=== PATIENT | male | born 1990 | race Hispanic/Latino ===

== ENCOUNTER 2017-05-22 20:08 | Emergency (ER) | payer SELFPAY ==
--- NOTE | 2017-05-22 22:17 | RAD ---
CERVICAL SPINE THREE VIEWS: 05/22/17 HISTORY: 27-year-old male with occipital headache and bilateral arm pain for two days. C7-T1 is partially obscured on the lateral view. There is no prevertebral soft tissue swelling. The t ip of the odontoid and portions of C1 are obscured on the AP open mouth view. No evidence for acute f racture or dislocation involving the visualized C-spine. No significant malalignment. Very mild degen erative changes. IMPRESSION: Very mild degenerative changes. No evidence of acute fracture or dislocation involving the visualized C-spine. POS: [facility]
== END 2017-05-22 22:44 | disposition home or self-care (01) ==
LOC: ERS 20:08
DX: M54.12 Radiculopathy, cervical region (principal); E78.5 Hyperlipidemia, unspecified; Z87.891 Personal history of nicotine dependence
CPT/HCPCS: 72040

== ENCOUNTER 2017-06-14 13:23 | Emergency (ER) | payer SELFPAY | END 2017-06-14 14:30 | disposition home or self-care (01) | LOC: ERS 13:23 | DX: R09.1 Pleurisy (principal); E78.5 Hyperlipidemia, unspecified; F41.9 Anxiety disorder, unspecified; Z87.891 Personal history of nicotine dependence | CPT/HCPCS: 99283 ==

== ENCOUNTER 2017-07-05 21:58 | Emergency (ER) | payer SELFPAY ==
[2017-07-05] MEDS ORDERED: Ketorolac Tromethamine 30 MG/ML VIAL ONE (22:31)
--- NOTE | 2017-07-05 22:33 | RAD ---
SINGLE VIEW OF THE CHEST: Comparison: None. History: Chest pain. FINDINGS: Single view of the chest shows a normal sized cardiomediastinal silhouette. There is no evidence of c onsolidation, mass, or pleural effusion. The bones are unremarkable. IMPRESSION: No evidence of acute cardiopulmonary disease. POS: [facility]
--- NOTE | 2017-08-08 15:03 | EKG ---
Test Reason : Blood Pressure : / mmHG Vent. Rate : 070 BPM Atrial Rate : 070 BPM P-R Int : 154 ms QRS Dur : 092 ms QT Int : 388 ms P-R-T Axes : 034 068 031 degrees QTc Int : 419 ms Normal sinus rhythm Normal ECG Confirmed by SIXTO ARRIAGA ([id number]), newspaper copy editor BAN MCKEON ([id number]) on 08/08/2017 3:02:25 PM Referred By: Confirmed By:SIXTO ARRIAGA
== END 2017-07-05 23:07 | disposition home or self-care (01) ==
LOC: ERS 21:58
DX: R07.89 Other chest pain (principal); F19.10 Other psychoactive substance abuse, uncomplicated; I10 Essential (primary) hypertension; E78.5 Hyperlipidemia, unspecified; F41.9 Anxiety disorder, unspecified; F17.210 Nicotine dependence, cigarettes, uncomplicated
CPT/HCPCS: 71045; 93005; 96372; J1885

== ENCOUNTER 2019-03-26 22:29 | Emergency (ER) | payer SELFPAY ==
--- NOTE | 2019-03-26 22:52 | RAD ---
Exam: Chest one view HISTORY:Chest pain Comparison: 07/05/2017 FINDINGS: Cardiac silhouette: Normal Aorta: Unremarkable Pulmonary vessels: Normal Costophrenic angles: Clear LUNGS: No masses or consolidation. Pneumothorax: None Osseous abnormalities: None IMPRESSION: No acute cardiopulmonary process.
[2019-03-26 23:18] LABS: #Eosinphils 0.3 thou/uL (0.0-0.7); #Monocytes 0.7 thou/uL (0.11-0.59); #Neutrophils 5.1 thou/uL (1.40-6.50); %Basophils 0.1 % (0.0-1.0); %Lymphocytes 32.8 % (21.0-51.0); %Monocytes 7.5 % (0.0-10.0); %Neutrophils 56.5 % (42.0-75.0); Hemoglobin 14.1 g/dL (14.0-18.0); Mean Corpuscular HGB CONC 33.6 g/dL (32.0-36.0); Mean Corpuscular Hemoglobin 29.4 pg (27.0-31.0); Mean Corpuscular Volume 87.7 fL (78.0-98.0); Mean Platelet Volume 7.5 fL (7.4-10.4); Platelet Count 319 thou/uL (130-400); Red Blood Cell (RBC) Count 4.79 mill/uL (4.70-6.10)
[2019-03-27] MEDS ORDERED: predniSONE 20 MG TAB ONE (00:40)
[2019-03-27 01:17] LABS: Troponin I Less than 0.010 ng/mL (< 0.028)
== END 2019-03-27 02:05 | disposition home or self-care (01) ==
LOC: ERS 22:29
DX: J20.9 Acute bronchitis, unspecified (principal); E78.5 Hyperlipidemia, unspecified; E78.00 Pure hypercholesterolemia, unspecified; F41.9 Anxiety disorder, unspecified; F17.210 Nicotine dependence, cigarettes, uncomplicated
CPT/HCPCS: 36415; 71045; 82374; 84484; 85025; 93005; J7512